=== PATIENT | female | born 1990 | race Caucasian/White ===

== ENCOUNTER 2022-07-05 10:39 | Emergency (ER) | payer MEDICAID, SELFPAY ==
[2022-07-05 11:07] VITALS: BP 140/80; PULSE 103; RESP 16; TEMP 37; O2SAT 98; BMI 42.3
--- NOTE | 2022-07-05 11:12 | HMH.EDUTC ---
[facility] [place] Clinical Impression: Strep throat Disposition: Home, Self-Care Condition on Discharge: Good Instructions: Strep Throat, DI for Strep Throat Additional Instructions: Drink plenty of fluids. Take tylenol or ibuprofen for pain or fever. Take the medications as directed. Follow up with your regular doctor. GO TO THE ER FOR ANY WORSENING SYMPTOMS Throw your tooth brush away and get a new one. Prescriptions: Brompheniramine/Pseudoephed/Dm [Bromfed Dm Cough Syrup] 5 ml PO Q6HP PRN #240 ml PRN Reason: Cough Transmission Status: Received by [id number] Amoxicillin [Amoxicillin 875MG Tab] 875 mg PO Q12H #20 tab Transmission Status: Received by [id number] methylPREDNISolone [Medrol] 4 mg PO DIRECTED 6 Days #21 packet Transmission Status: Received by [id number] Referrals: Provider,Referral, MD [Primary Care Provider] - Time of Disposition: 11:20 Medical Decision Making - Medical Records Medical records reviewed: No: I reviewed the patient's medical records. - [place] Inquiry Pt receiving controlled substance: No Vital Signs: 07/05/22 11:07 07/05/22 11:39 Temperature 98.6 F 98.6 F Temperature Source Oral Pulse Rate 103 H Pulse Rate [Left] 103 H Respiratory Rate 16 16 Blood Pressure 140/80 Blood Pressure [Right Arm] 140/80 Blood Pressure Mean [Right Arm] 100 02 Sat by Pulse Oximetry 98 - Lab Data Lab results reviewed: Yes: I reviewed the patient's lab results. Lab Results 07/05/22 11:12: Strep Scn Rapid [facility] Positive [place] [facility] [place] - General Stated complaint: Cough, sore throat Time Seen by Provider: 07/05/22 11:12 Mode of Arrival: Ambulatory Source of Information: Patient Limitations: No Limitations Description of Symptoms (Recalled from Triage Doc. by RN): patient come sin with complaints of cough, sore throat. patient here for covid test. patient also states that she ate pizza with mold on it, and has been having stomach issues. HEENT Symptoms (Recalled from RN notes): Yes Resp Symptoms (Recalled from RN notes): Yes Skin Symptoms (Recalled from RN notes): No MS Symptoms (Recalled from RN notes): No Functional Status (Recalled from RN notes): n/a - History of Present Illness Provider Complaint: She states that for the past 2 days she has had a sore throat, chills, low grade fever, dry cough, and chest congestion. She denies any known exposure to covid-19. - Related Data Previous Rx's Medication Instructions Recorded Amoxicillin [Amoxicillin 875MG 875 mg PO Q12H #20 tab 07/05/22 Tab] Brompheniramine/Pseudoephed/Dm 5 ml PO Q6HP PRN #240 ml 07/05/22 [Bromfed Dm Cough Syrup] methylPREDNISolone [Medrol] 4 mg PO DIRECTED 6 Days #21 07/05/22 packet Allergies Allergy/AdvReac Type Severity Reaction Status Date / Time No Known Allergies Allergy Verified 07/05/22 11:10 - Worker's Comp Is this a Worker's Comp case?: No [facility] History - Hepatitis A Screen Attestation statement:: This patient has been screened for Hepatitis A risk factors. I have reviewed the patient's past medical history: Yes ROS Obtained: Yes All systems reviewed & no additional complaints - Constitutional Constitutional: Reports as per HPI - Eyes Eyes: Denies eye discharge - ENT Ears, Nose, Mouth, and Throat: Reports as per HPI - Cardiovascular Cardiovascular: Denies chest pain - Respiratory Respiratory: Reports chest congestion, Reports cough Physical Exam - General General appearance: alert, in no apparent distress - Head Head exam: atraumatic, normocephalic, normal inspection - Eye Eye exam: Present: normal appearance, PERRL, EOMI - ENT ENT exam: Present: mucous membranes moist, normal external ear exam - Expanded ENT Exam TM/Canal exam: Bilateral TM: erythema, bulging Nose exam: Absent: sinus tenderness Nasal speculum exam: Bilateral: normal Throat exam: Present: tonsillar erythema, tons
[2022-07-05 11:17] LABS: UTC Strep Screen (Rapid) Positive (Negative)
[2022-07-05 11:39] VITALS: BP 140/80; PULSE 103; RESP 16; TEMP 37
== END 2022-07-05 11:40 | disposition home or self-care (01) ==
PROVIDERS: Emergency Provider Nurse Practitioner Family
DX: J02.0 Streptococcal pharyngitis (principal); B95.0 Streptococcus, group A, as the cause of diseases classified elsewhere; U07.1 COVID-19; Z79.52 Long term (current) use of systemic steroids
CPT/HCPCS: 87880; 99213; C9803; G0463; U0003; U0005

== ENCOUNTER 2022-10-14 11:24 | Emergency (ER) | payer MEDICAID, SELFPAY ==
[2022-10-14] VITALS (8 sets, daily range): BP systolic 105–137; BP diastolic 48–77; PULSE 60–68; RESP 16–18; TEMP 36.7; O2SAT 96–100; BMI 37.5
--- NOTE | 2022-10-14 11:48 | PC.NURSE ---
pt lying in bed
[2022-10-14 12:47] LABS: Microscopic, Urine URINE MICROSCOPIC (MICROSCOPIC)
[2022-10-14 12:50] LABS: Appearance,Urine SL CLOUDY (Clear); Bilirubin,Urine Negative (Negative); Blood, Urine 3+ (Negative); Color,Urine RED (Yellow); Glucose,Urine (UA) Negative (Negative); Ketones,Urine Negative (Negative); Leukocyte Esterase,Urine Negative (Negative); Nitrate,Urine Negative (Negative); PH,Urine 6.5 (5.0-8.5); Protein,Urine 1+ (Negative); Urobilinogen,Urine 0.2 EU/dl (0.2)
[2022-10-14 12:51] LABS: Urine Pregnancy, HCG Qual. Negative (Negative)
[2022-10-14 13:06] LABS: RBC,Urine TNTC #/hpf (0-3); Squamous Epithelial Cell,Urine Occasional #/hpf (0-5); WBC,Urine Occasional #/hpf (0-3)
--- NOTE | 2022-10-14 13:21 | HMH.EDGENADL ---
Discharge Plan Disposition Patient Disposition: Home, Self-Care Condition: Good Chief Complaint: Vaginal Bleeding Prescriptions Prescriptions: No Action levothyroxine [Synthroid] 200 mcg tablet 200 mcg PO DAILY Qty: 90 3RF fluoxetine [Prozac] 40 mg capsule 40 mg PO DAILY Qty: 90 3RF lisinopril 20 mg tablet 20 mg PO DAILY Qty: 90 3RF Referrals Follow up/Referrals: Taco Rossi MD [Primary Care Provider] - See instructions Bryan Mathias MD [Staff Physician] - See instructions Activity Restrictions/Add. Instructions Additional Instructions/Restrictions: Follow-up with Dr. Schofield in the office, call Sunday to make appointment. Return to the emergency department if severe bleeding or severe pain. Clinical Impressions Clinical Impression: Abnormal vaginal bleeding Instructions Patient Instructions: DI for Vaginal Bleeding Discharge ED Provider: Rodger Calloway General Adult HPI General Chief complaint: Vaginal Bleeding Stated complaint: vaginal bleeding Time Seen by Provider: 10/14/22 13:17 Mode of Arrival: Ambulatory Source of Information: Patient Limitations: No Limitations Description of Symptoms (Recalled from ER Triage Doc. by RN): Pt report has been on her menstrual period since September 19. Pt reports her periods normally only last 5-7 days. Pt denies cramping, denies blood clots with menstrual bleeding. Pt reports flow is heavier than her normal. History of Present Illness HPI narrative: Patient states that she has been on her period since September 19, 2020 6 days. Denies any pain. Denies any passage of clots. States she is using on average couple pads per day. She does not have a pin sticker. She has not seen her primary care provider. She says that her boyfriend wanted her to come in to be checked and her mother told her that she might have a cyst. Related Data Previous Rx's Medication Instructions Recorded fluoxetine 40 mg capsule (Prozac) 40 mg PO DAILY #90 caps 09/12/22 levothyroxine 200 mcg tablet 200 mcg PO DAILY #90 tabs 09/12/22 (Synthroid) lisinopril 20 mg tablet 20 mg PO DAILY #90 tabs 09/14/22 Allergies Allergy/AdvReac Type Severity Reaction Status Date / Time No Known Allergies Allergy Verified 09/12/22 16:27 PFSH PFSH Social History (Updated 09/13/22 @ 18:54 by Taco Rossi MD) Smoking Status: Never smoker alcohol intake: never current occupational status: other Travel in the last 8 weeks: None ROS Obtained: Yes Systems reviewed as appropriate & no additional complaints except as documented Constitutional Constitutional: Denies fever(s) Gastrointestinal Gastrointestingal: Denies abdominal pain Genitourinary Female Genitourinary: Reports abnormal vaginal bleeding, Denies pelvic pain and Denies vaginal discharge Physical Exam General General appearance: alert and in no apparent distress Chest Chest inspection: Present normal inspection and symmetric chest wall rise Respiratory Respiratory exam: Absent respiratory distress Cardiovascular Cardiovascular exam: Present regular rate Abdominal Exam Abdominal exam: Present soft; Absent distention or tenderness Expanded Exam Comment: Blood on perineum. External unremarkable. Speculum examination shows normal-appearing cervix. Approximately 5 cc of blood plus clot in the vaginal vault. No foreign bodies or lesions seen. Neurological Exam Neurological exam: Present alert and oriented X3 Psychiatric Psychiatric exam: Present normal affect and normal mood Skin Skin exam: Present warm and dry Medical Decision Making [place] Inquiry Pt receiving controlled substance: No Vital Signs: 10/14/22 11:24 10/14/22 11:44 10/14/22 12:00 Temperature 98.0 F Temperature Source Oral Pulse Rate 65 64 Pulse Rate [Right Radial] 63 Respiratory Rate 16 18 16 Blood Pressure 114/52 L 105/56 L Blood Pressure [Right Arm] 114/52 L Blood Pressure Mean 89 72 Blood Pressure Mean [Right
--- NOTE | 2022-10-14 13:27 | PC.NURSE ---
contacted lab to obtain blood on pt.
--- NOTE | 2022-10-14 14:04 | PC.NURSE ---
Pelvic set up
[2022-10-14 15:32] LABS: Basophils # 0.1 K/mm3 (0-0.2); Basophils % 1.1 % (0.1-2.0); Eosinophils # 0.2 K/mm3 (0.0-0.4); Eosinophils % 3.3 % (0.1-12.0); Hematocrit 33.5 % (37.0-47.0); Hemoglobin 10.6 g/dL (12.2-16.2); Lymphocytes # 1.8 K/mm3 (0.7-4.5); Lymphocytes % 28.2 % (10-50); Mean Corpuscular HGB Conc 31.7 g/dL (31.8-35.4); Mean Corpuscular Hemoglobin 28.2 pg (27.0-31.2); Mean Corpuscular Volume 89.2 fl (81-99); Monocytes # 0.4 K/mm3 (0.1-1.0); Monocytes % 5.7 % (1.7-9.3); Neutrophils % 61.8 % (37.0-80.0); Platelet Count 274 K/mm3 (142-424); Red Blood Count 3.76 M/mm3 (4.20-5.40); Red Cell Distribution Width 12.6 % (11.5-17.5); White Blood Count 6.5 K/mm3 (4.8-10.8)
[2022-10-17 22:16] LABS: Neisseria gonorrhoeae, NAA Negative (Negative)
== END 2022-10-14 15:45 | disposition home or self-care (01) ==
PROVIDERS: Emergency Provider Emergency Medicine; PCP Family Medicine
DX: N93.8 Other specified abnormal uterine and vaginal bleeding (principal)
CPT/HCPCS: 36415; 81001; 81025; 85025; 87491; 87591; 99282

== ENCOUNTER 2022-10-18 14:12 | Emergency (ER) | payer OTHER, MEDICAID, SELFPAY ==
[2022-10-18] VITALS (7 sets, daily range): BP systolic 119–134; BP diastolic 70–86; PULSE 63–86; RESP 18–23; TEMP 36.7; O2SAT 98–100; BMI 39.1
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
== END 2022-10-18 17:50 | disposition home or self-care (01) ==
PROVIDERS: Emergency Provider Emergency Medicine; PCP Family Medicine
DX: S01.01XA Laceration without foreign body of scalp, initial encounter (principal); V89.2XXA Person injured in unspecified motor-vehicle accident, traffic, initial encounter; Z23 Encounter for immunization
CPT/HCPCS: 12001; 90471; 90715; 99283

== ENCOUNTER 2022-10-25 13:25 | Emergency (ER) | payer OTHER, MEDICAID, SELFPAY ==
[2022-10-25 14:33] VITALS: BP 139/94; PULSE 73; RESP 18; TEMP 36.6; O2SAT 100; BMI 37.5
--- NOTE | 2022-10-25 14:38 | PC.NURSE ---
3 JF REMOVED FROM SCALP AT THIS TIME
[2022-10-25 14:39] VITALS: BP 139/94; PULSE 73; RESP 18; TEMP 36.6; O2SAT 100
== END 2022-10-25 14:42 | disposition home or self-care (01) ==
PROVIDERS: Emergency Provider Nurse Practitioner; PCP Family Medicine
DX: Z48.02 Encounter for removal of sutures (principal)

== ENCOUNTER → 2023-03-13 23:28 | Outpatient (CLI) | payer MEDICAID, SELFPAY ==
[2023-03-13 18:42] LABS: Basophils # 0.1 K/mm3 (0-0.2); Basophils % 0.8 % (0.1-2.0); Eosinophils # 0.3 K/mm3 (0.0-0.4); Eosinophils % 3.6 % (0.1-12.0); Hematocrit 36.4 % (37.0-47.0); Hemoglobin 11.6 g/dL (12.2-16.2); Lymphocytes # 2.5 K/mm3 (0.7-4.5); Lymphocytes % 29.6 % (10-50); Mean Corpuscular HGB Conc 31.8 g/dL (31.8-35.4); Mean Corpuscular Hemoglobin 26.2 pg (27.0-31.2); Mean Corpuscular Volume 82.3 fl (81-99); Mean Platelet Volume 9.7 fl (7.4-10.4); Monocytes # 0.5 K/mm3 (0.1-1.0); Monocytes % 5.4 % (1.7-9.3); Neutrophils # 5.1 K/mm3 (1.8-7.8); Neutrophils % 60.6 % (37.0-80.0); Platelet Count 319 K/mm3 (142-424); Red Blood Count 4.42 M/mm3 (4.20-5.40); Red Cell Distribution Width 15.7 % (11.5-17.5); White Blood Count 8.3 K/mm3 (4.8-10.8)
[2023-03-13 18:52] LABS: Alanine Aminotransferase 19 U/L (12-78); Albumin Level 3.6 g/dl (3.5-5.0); Albumin/Globulin Ratio 1.1 (1.1-1.8); Alkaline Phosphatase 84 U/L (38-126); Aspartate Amino Transferase 29 U/L (14-36); Bilirubin,Total 0.4 mg/dl (0.2-1.3); Blood Urea Nitrogen 9 mg/dl (7-17); Calcium 8.5 mg/dl (8.4-10.2); Carbon Dioxide 30 mmol/L (22.0-30.0); Estimated Glomerular Filt Rate 115 ml/min (>60); GFR (African American) 139 ML/MIN (>60); Globulin 3.2 g/dL (1.3-3.2); Glucose 89 mg/dl (74-100); Potassium 4.1 mmoL/L (3.5-5.1); Sodium 137 mmol/L (136-145); Total Protein,Serum 6.8 g/dl (6.3-8.2)
[2023-03-13 19:03] LABS: Anion Gap 10.1 mEq/L (5-15); Chloride 101 mmol/L (98-107)
[2023-03-13 19:12] LABS: 25-OH Vitamin D, Total 34.2 ng/mL (30-100)
[2023-03-13 19:21] LABS: Thyroid Stimulating Hormone 4.05 uIU/mL (0.465-4.68)
== END ==
PROVIDERS: PCP Emergency Medicine; Visit Provider Emergency Medicine
DX: E03.9 Hypothyroidism, unspecified (principal); E66.9 Obesity, unspecified; Z68.44 Body mass index [BMI] 60.0-69.9, adult; Z79.899 Other long term (current) drug therapy
CPT/HCPCS: 80053; 82306; 84439; 84443; 85025

== ENCOUNTER 2023-05-18 18:29 | Emergency (ER) | payer MEDICAID, SELFPAY ==
[2023-05-18 18:30] VITALS: BP 171/98; PULSE 104; RESP 16; TEMP 36.8; O2SAT 100; BMI 50.1
[2023-05-18 18:33] VITALS: BP 171/98; PULSE 106; RESP 18; O2SAT 100
[2023-05-18 19:00] VITALS: BP 138/91; PULSE 94; O2SAT 100
[2023-05-18 19:30] LABS: Basophils # 0.1 K/mm3 (0-0.2); Basophils % 0.5 % (0.1-2.0); Eosinophils # 0.2 K/mm3 (0.0-0.4); Eosinophils % 1.4 % (0.1-12.0); Hematocrit 36.6 % (37.0-47.0); Hemoglobin 11.6 g/dL (12.2-16.2); Lymphocytes # 1.8 K/mm3 (0.7-4.5); Lymphocytes % 16.6 % (10-50); Mean Corpuscular HGB Conc 31.8 g/dL (31.8-35.4); Mean Corpuscular Hemoglobin 25.9 pg (27.0-31.2); Mean Corpuscular Volume 81.6 fl (81-99); Mean Platelet Volume 8.9 fl (7.4-10.4); Monocytes # 0.4 K/mm3 (0.1-1.0); Neutrophils # 8.5 K/mm3 (1.8-7.8); Neutrophils % 77.4 % (37.0-80.0); Platelet Count 355 K/mm3 (142-424); Red Blood Count 4.49 M/mm3 (4.20-5.40); Red Cell Distribution Width 14.7 % (11.5-17.5)
[2023-05-18 19:40] LABS: Chloride 101 mmol/L (98-107); Sodium 138 mmol/L (136-145)
[2023-05-18 19:41] LABS: Potassium 3.4 mmoL/L (3.5-5.1)
[2023-05-18 19:43] LABS: Alanine Aminotransferase 28 U/L (12-78); Albumin Level 4.2 g/dl (3.5-5.0); Alkaline Phosphatase 93 U/L (38-126); Anion Gap 13.4 mEq/L (5-15); Aspartate Amino Transferase 32 U/L (14-36); Bilirubin,Total 0.2 mg/dl (0.2-1.3); Blood Urea Nitrogen 11 mg/dl (7-17); Carbon Dioxide 27 mmol/L (22.0-30.0); Creatinine Clearance Estimated 110 mL/min (50-200); Estimated Glomerular Filt Rate 96 ml/min (>60); GFR (African American) 116 ML/MIN (>60); Globulin 4.1 g/dL (1.3-3.2); Total Protein,Serum 8.3 g/dl (6.3-8.2)
[2023-05-18 19:44] LABS: Calcium 8.6 mg/dl (8.4-10.2); Glucose 125 mg/dl (74-100)
[2023-05-18 20:02] LABS: Microscopic, Urine URINE MICROSCOPIC (MICROSCOPIC)
[2023-05-18 20:05] LABS: Appearance,Urine CLEAR (Clear); Bilirubin,Urine Negative (Negative); Blood, Urine 3+ (Negative); Color,Urine YELLOW (Yellow); Glucose,Urine (UA) Negative (Negative); Ketones,Urine Negative (Negative); Leukocyte Esterase,Urine Negative (Negative); Nitrate,Urine Negative (Negative); Protein,Urine Negative (Negative); Specific Gravity, Urine 1.015 (1.005-1.030); Urobilinogen,Urine 0.2 EU/dl (0.2)
--- NOTE | 2023-05-18 20:17 | ECG_ITS ---
APPROVED REPORT Exam: Resting ECG HR:67 bpm ECG Measurements Heart Rate 67 AXES MD 145 P 58 QRSd 99 QRS 44 QT 402 T 43 QTc 417 Conclusion SINUS RHYTHM WITH SINUS ARRHYTHMIA NORMAL ECG UNCONFIRMED REPORT Electronically signed by : Allen De La Cruz MD 05/19/2023 15:03:57
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
[2023-05-18 20:21] LABS: Amphetamine/Metha Screen,Urine Negative ng/ml (<1000)
[2023-05-18 20:22] LABS: Bacteria,Urine Trace /lpf; Barbiturates Screen,Urine Negative ng/ml (<200); WBC,Urine Occasional #/hpf (0-3)
[2023-05-18 20:23] LABS: Benzodiazepines Screen,Urine Negative ng/ml (<200); Cannabinoid Screen,Urine Positive ng/ml (<50)
[2023-05-18 20:23] LABS: Urine Pregnancy, HCG Qual. Negative (Negative)
[2023-05-18 20:24] LABS: Cocaine Screen,Urine Negative ng/ml (<300); Methadone Screen,Urine Negative ng/ml (<300)
[2023-05-18 20:25] LABS: Opiate Screen,Urine Negative ng/ml (<300)
[2023-05-18 20:26] LABS: Phencyclidine Screen,Urine Negative ng/ml (<25)
[2023-05-18 21:17] VITALS: BP 143/85; PULSE 76; RESP 19; TEMP 36.6; O2SAT 97
== END 2023-05-18 21:17 | disposition home or self-care (01) ==
PROVIDERS: Emergency Medicine; Emergency Provider Emergency Medicine
DX: R55 Syncope and collapse (principal); I49.9 Cardiac arrhythmia, unspecified
CPT/HCPCS: 36415; 80053; 80305; 81001; 81025; 85025; 93005; 99283; 99284

== ENCOUNTER → 2023-08-31 10:02 | Outpatient (CLI) | payer MEDICAID, SELFPAY | PROVIDERS: PCP Nurse Practitioner Family; Visit Provider Nurse Practitioner Family | DX: R06.02 Shortness of breath (principal) ==

== ENCOUNTER → 2023-09-26 23:47 | Outpatient (CLI) | payer MEDICAID, SELFPAY ==
[2023-09-26 23:15] LABS: Amphetamine/Metha Screen,Urine Negative ng/ml (<1000)
[2023-09-26 23:16] LABS: Barbiturates Screen,Urine Negative ng/ml (<200); Benzodiazepines Screen,Urine Negative ng/ml (<200)
[2023-09-26 23:18] LABS: Cannabinoid Screen,Urine Negative ng/ml (<50); Cocaine Screen,Urine Negative ng/ml (<300)
[2023-09-26 23:19] LABS: Methadone Screen,Urine Negative ng/ml (<300)
[2023-09-26 23:20] LABS: Opiate Screen,Urine Negative ng/ml (<300); Phencyclidine Screen,Urine Negative ng/ml (<25)
== END ==
PROVIDERS: PCP Nurse Practitioner Family; Visit Provider Nurse Practitioner Family
DX: F32.9 Major depressive disorder, single episode, unspecified (principal)
CPT/HCPCS: 80305

== ENCOUNTER 2024-07-08 11:02 | Emergency (ER) | payer MEDICAID, SELFPAY ==
--- NOTE | 2024-07-08 11:17 | EXP.UTC ---
Discharge Plan Disposition Patient Disposition: Home, Self-Care Condition: Good Prescriptions Prescriptions: New mupirocin 2 % ointment 1 applic topical TID 7 Days Qty: 15 0RF amoxicillin-pot clavulanate 875-125 mg Tablet 1 tab PO Q12H Qty: 20 0RF No Action Vraylar 1.5 mg capsule See Rx Instructions .ROUTE .COMPLEX Qty: 30 1RF Dose Instruction: TAKE 1 CAPSULE BY MOUTH DAILY Rx Instructions: TAKE 1 CAPSULE BY MOUTH DAILY fluoxetine 40 mg capsule See Rx Instructions .ROUTE .COMPLEX Qty: 90 2RF Dose Instruction: TAKE 1 CAPSULE BY MOUTH ONCE DAILY Rx Instructions: TAKE 1 CAPSULE BY MOUTH ONCE DAILY lisinopril 20 mg tablet See Rx Instructions .ROUTE .COMPLEX Qty: 90 2RF Dose Instruction: TAKE 1 TABLET BY MOUTH ONCE DAILY Rx Instructions: TAKE 1 TABLET BY MOUTH ONCE DAILY Anoro Ellipta 62.5-25 mcg/actuation blister with device 1 inh inhalation DAILY Qty: 60 2RF albuterol sulfate 90 mcg/actuation HFA aerosol inhaler 2 puff inhalation Q4-6H PRN (Reason: bronchospasm) Qty: 8.5 3RF levothyroxine 200 mcg tablet See Rx Instructions .ROUTE .COMPLEX Qty: 90 2RF Dose Instruction: TAKE 1 TABLET BY MOUTH ONCE DAILY Rx Instructions: TAKE 1 TABLET BY MOUTH ONCE DAILY ipratropium-albuterol 0.5 mg-3 mg(2.5 mg base)/3 mL solution for nebulization 3 ml inhalation QID PRN (Reason: Asthma) Qty: 180 2RF hydroxyzine pamoate 25 mg capsule See Rx Instructions .ROUTE .COMPLEX Qty: 60 0RF Dose Instruction: TAKE 1 CAPSULE BY MOUTH THREE TIMES A DAY NEEDED FOR ITCHING MAY CAUSE DROWSINESS Rx Instructions: TAKE 1 CAPSULE BY MOUTH THREE TIMES A DAY NEEDED FOR ITCHING MAY CAUSE DROWSINESS Referrals Follow up/Referrals: Tommy Pearson APRN [Primary Care Provider] - See instructions Kaelyn Jean DPM [Staff Physician] - See instructions Activity Restrictions/Add. Instructions Additional Instructions/Restrictions: Rest the extremity, Elevate the extremity as tolerated while you are resting. Take ibuprofen or tylenol for pain. Follow up with Dr. Jean (podiatry). I put in a referral but you need to call her office and schedule an appointment. Follow up with your regular doctor. GO TO THE ER FOR ANY WORSENING SYMPTOMS Clinical Impressions Clinical Impression: Contusion of left great toe with damage to nail Instructions Patient Instructions: Amoxicillin and Clavulanic Acid, Mupirocin, DI for Nail Bed Injury Print Language Print Language: Guinean Discharge ED Provider: Jasiel Swanson [facility] HPI General Stated complaint: broken toe nail Time Seen by Provider: 07/08/24 11:17 Related Data Previous Rx's ?Medication ?Instructions ?Recorded levothyroxine 200 mcg tablet See Rx Instructions .Route 07/30/23 .COMPLEX #90 tabs ipratropium 0.5 mg-albuterol 3 mg 3 ml inhalation QID PRN Asthma 08/24/23 (2.5 mg base)/3 mL nebulization #180 mL soln hydroxyzine pamoate 25 mg capsule See Rx Instructions .Route 11/23/23 .COMPLEX #60 caps albuterol sulfate 90 mcg/actuation 2 puff inhalation Q4-6H PRN 05/08/24 aerosol inhaler bronchospasm #8.5 grams cariprazine 1.5 mg capsule See Rx Instructions .Route 05/08/24 (Vraylar) .COMPLEX #30 caps fluoxetine 40 mg capsule See Rx Instructions .Route 05/08/24 .COMPLEX #90 caps lisinopril 20 mg tablet See Rx Instructions .Route 05/08/24 .COMPLEX #90 tabs umeclidinium 62.5 mcg-vilanterol 1 inh inhalation DAILY #60 ea 05/08/24 25 mcg/actuation powdr for inhalation (Anoro Ellipta) amoxicillin 875 mg-potassium 1 tab PO Q12H #20 tabs 07/08/24 clavulanate 125 mg tablet mupirocin 2 % topical ointment 1 applic topical TID 7 days #15 07/08/24 grams Allergies Allergy/AdvReac Type Severity Reaction Status Date / Time No Known Allergies Allergy Verified 05/08/24 13:07 [facility] Disclaimer: The information contained in this section may have been updated after the patient was seen, as this information can be updated by other users. Social History Smoking Status: Never smoker alcohol intake: never current occupational status: other Travel in the last 8 weeks: None ROS Obtained: Yes All systems reviewed & no additional complaints except as documented Constitutional Constitutional: Denies chills and Denies fever(s) Eyes Eyes: Denies eye discharge ENT Ears, Nose, Mouth, and Throat: Denies dizziness, Denies otalgia and Denies sore throat Cardiovascular Cardiovascular: Denies chest pain Respiratory Respiratory: Denies shortness of breath, Denies chest congestion, Denies cough, Denies stridor and Denies wheezing Gastrointestinal Gastrointestingal: Denies nausea or vomiting Musculoskeletal Musculoskeletal: Reports system reviewed and no additional complaints, except as documented and Denies arthralgias Integumentary/Breasts Skin/Breast: Denies rash Neurologic Neurologic: Denies dizziness and Denies paresthesias Allergic/Immunologic Allergic/Immunologic: Denies wheezing Physical Exam General General appearance: alert and in no apparent distress Head Head exam: atraumatic, normocephalic and normal inspection Eye Eye exam: Present normal appearance, PERRL and EOMI ENT ENT exam: Present normal exam, normal oropharynx, mucous membranes moist, TM's normal bilaterally and normal external ear exam Neck Neck exam: Present normal inspection, full ROM and trachea midline; Absent meningismus or lymphadenopathy Chest Chest inspection: Present normal inspection and symmetric chest wall rise; Absent tenderness Respiratory Respiratory exam: Present normal lung sounds bilaterally; Absent respiratory distress Cardiovascular Cardiovascular exam: Present regular rate and normal rhythm; Absent JVD Abdominal Exam Abdominal exam: Present soft and normal bowel sounds; Absent distention, tenderness or guarding Extremities Exam Extremities exam: Present normal inspection, full ROM and normal capillary refill; Absent calf tenderness Back Exam Back exam: Present normal inspection; Absent tenderness Neurological Exam Neurological exam: Present alert and oriented X3 Psychiatric Psychiatric exam: Present normal affect and normal mood Skin Skin exam: Present warm, dry, intact and normal color Lymphatic Lymphatic Findings: no adenopathy Medical Decision Making Medical Records Medical records reviewed: No I reviewed the patient's medical records. [place] Inquiry Pt receiving controlled substance: No
[2024-07-08 11:20] VITALS: BP 164/109; PULSE 84; RESP 23; TEMP 36.8; O2SAT 99; BMI 42.3
[2024-07-08 11:35] VITALS: BP 164/109; PULSE 84; RESP 23; TEMP 36.8; O2SAT 99
== END 2024-07-08 11:38 | disposition home or self-care (01) ==
PROVIDERS: Emergency Provider Nurse Practitioner Family; PCP Nurse Practitioner Family
DX: S90.212A Contusion of left great toe with damage to nail, initial encounter (principal); X58.XXXA Exposure to other specified factors, initial encounter
CPT/HCPCS: 99212; 99214; G0463

== ENCOUNTER 2025-04-30 15:22 | Outpatient (CLI) | payer MEDICAID, SELFPAY ==
[2025-04-30 18:06] LABS: Basophils # 0.1 K/mm3 (0-0.2); Basophils % 0.6 % (0.1-2.0); Eosinophils # 0.3 Kmm3 (0.0-0.4); Eosinophils % 3.2 % (0.1-12.0); Hematocrit 30.5 % (37.0-47.0); Hemoglobin 8.6 g/dL (12.2-16.2); Immature Granulocytes # 0.03 10^3uL; Immature Granulocytes % 0.4 %; Lymphocytes # 1.7 K/mm3 (0.7-4.5); Lymphocytes % 21.4 % (10-50); Mean Corpuscular HGB Conc 28.2 g/dL (31.8-35.4); Mean Corpuscular Hemoglobin 21.4 pg (27.0-31.2); Mean Corpuscular Volume 76.1 fl (81-99); Mean Platelet Volume 10.2 fl (7.4-10.4); Monocytes # 0.6 K/mm3 (0.1-1.0); Monocytes % 7.1 % (1.7-9.3); Neutrophils # 5.2 K/mm3 (1.8-7.8); Neutrophils % 67.3 % (37.0-80.0); Nucleated Red Blood Cells # 0 10^3/uL; Nucleated Red Blood Cells % 0 %; Platelet Count 372 K/mm3 (142-424); Red Blood Count 4.01 M/mm3 (4.20-5.40); Red Cell Distribution Width 16.2 % (11.5-17.5); Red Cell Distribution Width-SD 44.7 fL; White Blood Count 7.7 K/mm3 (4.8-10.8)
[2025-04-30 19:40] LABS: Alanine Aminotransferase 13 U/L (12-78); Albumin Level 3.6 g/dl (3.5-5.0); Alkaline Phosphatase 81 U/L (38-126); Anion Gap 7.2 mEq/L (5-15); Aspartate Amino Transferase 21 U/L (14-36); Bilirubin,Total 0.5 mg/dl (0.2-1.3); Blood Urea Nitrogen 8 mg/dl (7-17); Calcium 8.8 mg/dl (8.4-10.2); Carbon Dioxide 29 mmol/L (22.0-30.0); Chloride 103 mmol/L (98-107); Chol/HDL Ratio 3.8 (1-3.5); Cholesterol 155 mg/dl (140-200); Estimated Glomerular Filt Rate 95 ml/min (>60); GFR (African American) 115 ML/MIN (>60); Globulin 3.6 g/dL (1.3-3.2); Glucose 83 mg/dl (74-100); HDL Cholesterol 41 mg/dl (40-60); Potassium 4.2 mmoL/L (3.5-5.1); Sodium 135 mmol/L (136-145); Total Protein,Serum 7.2 g/dl (6.3-8.2); Triglycerides 102 mg/dl (30-150); VLDL Cholesterol 20 mg/dL (0-40)
[2025-04-30 19:57] LABS: 25-OH Vitamin D, Total 31.3 ng/mL (30-100)
[2025-05-01 10:58] LABS: Iron 32 ug/dL (37-170)
[2025-05-01 11:07] LABS: Total Iron Binding Capacity 466 ug/dL (265-497)
[2025-05-01 11:34] LABS: Ferritin 4.72 ng/ml (6.24-137)
== END 2025-04-30 23:59 | disposition home or self-care (01) ==
LOC: LAB.DROPOF 05-01 23:46
PROVIDERS: PCP Family Medicine; Visit Provider Family Medicine
DX: Z00.00 Encounter for general adult medical examination without abnormal findings (principal)
CPT/HCPCS: 80053; 80061; 82306; 82728; 83540; 83550; 84443; 85025

== ENCOUNTER 2025-10-07 10:06 | Emergency (ER) | payer MEDICAID, SELFPAY ==
[2025-10-07 10:07] VITALS: BP 137/70; PULSE 85; RESP 20; TEMP 36.7; O2SAT 98; BMI 62.6
--- NOTE | 2025-10-07 10:13 | ECG_ITS ---
APPROVED REPORT Exam: Resting ECG HR:87 bpm ECG Measurements Heart Rate 87 AXES OR 138 P 58 QRSd 94 QRS 48 QT 374 T 46 QTc 419 Conclusion SINUS RHYTHM NORMAL ECG UNCONFIRMED REPORT Normal sinus rhythm. No ST elevation or depression. QTc normal at 419 Electronically signed by : GOLDIE MARSHALL, 10/08/2025 14:20:50
[2025-10-07 10:15] VITALS: BP 137/70; RESP 17
--- NOTE | 2025-10-07 10:15 | XR_ITS ---
FINAL REPORT TECHNIQUE: Single view chest CLINICAL HISTORY: chest pain, shortness of breath FINDINGS: A single view of the chest was obtained. The heart and mediastinum are within normal limits. The lungs are clear. There is no pneumothorax. IMPRESSION: No acute cardiopulmonary process. Reviewed, Interpreted and Dictated by Ria Shabazz MD Transcribed by Myriam Gómez Authenticated and [facility]
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
[2025-10-07 10:24] VITALS: PULSE 85
[2025-10-07 10:29] LABS: Coronavirus 19, PCR Not Detected (NotDetected); Influenza A, PCR Not Detected (NotDetected); Influenza B, PCR Not Detected (NotDetected)
[2025-10-07 10:31] VITALS: BP 135/76; PULSE 84; RESP 12; O2SAT 100
[2025-10-07 10:39] LABS: Hematocrit 27.9 % (37.0-47.0); Hemoglobin 7.5 g/dL (12.2-16.2); Immature Granulocytes % 0.2 %; Mean Corpuscular HGB Conc 26.9 g/dL (31.8-35.4); Mean Corpuscular Hemoglobin 18.8 pg (27.0-31.2); Mean Corpuscular Volume 69.9 fl (81-99); Nucleated Red Blood Cells % 0 %; Platelet Count 405 K/mm3 (142-424); Red Blood Count 3.99 M/mm3 (4.20-5.40); Red Cell Distribution Width-SD 46.0 fL; White Blood Count 8.3 K/mm3 (4.8-10.8)
[2025-10-07 10:57] LABS: Alanine Aminotransferase 22 U/L (12-78); Albumin Level 4.0 g/dl (3.5-5.0); Albumin/Globulin Ratio 1.1 (1.1-1.8); Alkaline Phosphatase 85 U/L (38-126); Anion Gap 9.0 mEq/L (5-15); Aspartate Amino Transferase 31 U/L (14-36); Bilirubin,Total 0.4 mg/dl (0.2-1.3); Blood Urea Nitrogen 9 mg/dl (7-17); Calcium 9.0 mg/dl (8.4-10.2); Carbon Dioxide 29 mmol/L (22.0-30.0); Chloride 101 mmol/L (98-107); Creatinine Clearance Estimated 95 mL/min (50-200); Creatinine,Serum 0.80 mg/dl (0.52-1.04); Estimated Glomerular Filt Rate 81 ml/min (>60); GFR (African American) 98 ML/MIN (>60); Globulin 3.8 g/dL (1.3-3.2); Glucose 124 mg/dl (74-100); Potassium 4.0 mmoL/L (3.5-5.1); Sodium 135 mmol/L (136-145); Total Protein,Serum 7.8 g/dl (6.3-8.2)
[2025-10-07 11:01] LABS: D-Dimer 0.97 ug/mL (0.0-0.5)
[2025-10-07 11:10] LABS: NT Pro Brain Natriuretic Pep. 39.0 pg/mL (0-125)
[2025-10-07 11:13] LABS: Troponin I < 0.01 ng/ml (0.00-0.034)
[2025-10-07 11:56] VITALS: BP 142/70; PULSE 69; RESP 20; TEMP 36.6; O2SAT 98
--- NOTE | 2025-10-07 11:56 | PC.NURSE ---
Rounded on patient, no needs voiced at this time.
== END 2025-10-07 11:57 | disposition home or self-care (01) ==
PROVIDERS: Emergency Provider Student in an Organized Health Care Education/Training Program; PCP Family Medicine
DX: R07.1 Chest pain on breathing (principal); D64.9 Anemia, unspecified; N92.0 Excessive and frequent menstruation with regular cycle
CPT/HCPCS: 71045; 80053; 83880; 84484; 85025; 85378; 87636; 93005; 99285

== ENCOUNTER 2025-10-28 07:39 | Outpatient (CLI) | payer MEDICAID, SELFPAY ==
[2025-10-28 20:43] LABS: Hematocrit 33.4 % (37.0-47.0); Hemoglobin 9.0 g/dL (12.2-16.2); Immature Granulocytes % 0.2 %; Mean Corpuscular HGB Conc 26.9 g/dL (31.8-35.4); Mean Corpuscular Hemoglobin 18.9 pg (27.0-31.2); Mean Corpuscular Volume 70.3 fl (81-99); Nucleated Red Blood Cells % 0 %; Platelet Count 429 K/mm3 (142-424); Red Blood Count 4.75 M/mm3 (4.20-5.40); Red Cell Distribution Width-SD 46.1 fL; White Blood Count 9.4 K/mm3 (4.8-10.8)
[2025-10-28 21:57] LABS: Albumin Level 4.1 g/dl (3.5-5.0); Chloride 102 mmol/L (98-107); Potassium 4.5 mmoL/L (3.5-5.1); Sodium 139 mmol/L (136-145)
[2025-10-28 21:59] LABS: Blood Urea Nitrogen 9 mg/dl (7-17); Creatinine,Serum 0.70 mg/dl (0.52-1.04); Estimated Glomerular Filt Rate 95 ml/min (>60); GFR (African American) 115 ML/MIN (>60)
[2025-10-28 22:00] LABS: Alanine Aminotransferase 18 U/L (12-78); Albumin/Globulin Ratio 1.0 (1.1-1.8); Alkaline Phosphatase 97 U/L (38-126); Anion Gap 14.5 mEq/L (5-15); Aspartate Amino Transferase 26 U/L (14-36); Bilirubin,Total 0.4 mg/dl (0.2-1.3); Calcium 8.9 mg/dl (8.4-10.2); Carbon Dioxide 27 mmol/L (22.0-30.0); Globulin 4.2 g/dL (1.3-3.2); Glucose 80 mg/dl (74-100); Iron 31 ug/dL (37-170); Total Protein,Serum 8.3 g/dl (6.3-8.2)
[2025-10-28 22:09] LABS: Total Iron Binding Capacity 375 ug/dL (265-497)
[2025-10-28 22:31] LABS: Thyroid Stimulating Hormone 5.27 uIU/mL (0.465-4.68)
[2025-10-28 22:36] LABS: Ferritin 5.21 ng/ml (6.24-137)
[2025-10-28 23:39] LABS: Hemoglobin A1C 5.4 % (4.0-6.0)
== END 2025-10-28 23:59 ==
LOC: LAB.DROPOF 10-30 07:42
PROVIDERS: PCP Student in an Organized Health Care Education/Training Program; Visit Provider Family Medicine
DX: D64.9 Anemia, unspecified (principal); R73.9 Hyperglycemia, unspecified
CPT/HCPCS: 80053; 82728; 83036; 83540; 83550; 84443; 85025